=== PATIENT | male | born 1980 | race Caucasian/White ===

== ENCOUNTER 2016-08-03 02:10 | Emergency (ER) | payer OTHER ==
[~2016-08-03 02:10] MED LIST: Oxycodone/Acetaminophen PO; SERT20OR PO; TRAZ-115 PO
[2016-08-03 02:17] VITALS: BP 153/91; PULSE 78; RESP 20; O2SAT 99
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
[2016-08-03] MEDS ORDERED: IBUP-1827 PO (03:32)
[2016-08-03 03:46] VITALS: BP 159/100; PULSE 80; RESP 18; O2SAT 97
--- NOTE | 2016-08-03 08:59 | DRSVH ---
PROCEDURE: X-RAY PELVIS W/LAT HIP (RT) ([id number]) INDICATIONS: fall TECHNIQUE: AP pelvis with lateral view(s) of the right hip(s). COMPARISON: None. FINDINGS: Bones: No fractures or dislocations. Pelvic ring appears intact. No suspicious bony lesions. Soft tissues: The visualized bowel gas pattern is normal. No suspicious soft tissue calcifications. IMPRESSION: No displaced fracture seen. If there is continued pain, followup exam or additional kathy ging such as MRI or CT could be performed for further assessment. Dictated by: Cesar Rico RR Interpreted: Doug Joy MD on 08/03/2016 at 8:58 Transcribed by: JONATHON on 08/03/2016 at 8:58 Approved by: Doug Joy M.D. on 08/03/2016 at 15:39
--- NOTE | 2016-08-03 09:17 | DRSVH ---
PROCEDURE: X-RAY LEFT ELBOW COMPLETE, MINIMUM THREE VIEWS ([id number]) INDICATIONS: fall TECHNIQUE: 3 views of the elbow were acquired. COMPARISON: None. FINDINGS: Bones: No fractures or dislocations. No suspicious bony lesions. Soft tissues: No elbow joint effusion. No suspicious soft tissue calcifications. IMPRESSION: No displaced fracture seen. If there is continued pain, followup exam or additional kathy ging such as MRI or CT could be performed for further assessment. Dictated by: Cesar Rico [facility] Interpreted: Doug Joy MD on 08/03/2016 at 9:16 Transcribed by: JONATHON on 08/03/2016 at 9:16 Approved by: Doug Joy M.D. on 08/03/2016 at 15:39
--- NOTE | 2016-08-03 09:17 | DRSVH ---
PROCEDURE: X-RAY RIGHT ELBOW COMPLETE, MINIMUM THREE VIEWS ([id number]) INDICATIONS: fall TECHNIQUE: 3 views of the elbow were acquired. COMPARISON: None. FINDINGS: Bones: No fractures or dislocations. No suspicious bony lesions. Soft tissues: No elbow joint effusion. No suspicious soft tissue calcifications. IMPRESSION: No displaced fracture seen. If there is continued pain, followup exam or additional kathy ging such as MRI or CT could be performed for further assessment. Dictated by: Cesar Rico [facility] Interpreted: Doug Joy MD on 08/03/2016 at 9:16 Transcribed by: JONATHON on 08/03/2016 at 9:16 Approved by: Doug Joy M.D. on 08/03/2016 at 15:40
--- NOTE | 2016-08-03 10:51 | DRSVH ---
PROCEDURE: X-RAY LEFT ANKLE, MINIMUM THREE VIEWS ([id number]) INDICATIONS: fall TECHNIQUE: 3 views of the ankle were acquired. COMPARISON: None. FINDINGS: Bones: No fractures or dislocations. Ankle mortise is normally aligned. No suspicious bony lesions . Soft tissues: No tibiotalar joint effusion. Achilles tendon appears normal. IMPRESSION: No displaced fracture seen. If there is continued pain, followup exam or additional kathy ging such as MRI or CT could be performed for further assessment. Dictated by: Cesar Rico RR Interpreted: Doug Joy MD on 08/03/2016 at 10:50 Transcribed by: JONATHON on 08/03/2016 at 10:50 Approved by: Doug Joy M.D. on 08/03/2016 at 15:40
== END 2016-08-03 03:47 | disposition home or self-care (01) ==
LOC: SED 02:10
DX: S50.01XA Contusion of right elbow, initial encounter (principal); S50.02XA Contusion of left elbow, initial encounter; S76.011A Strain of muscle, fascia and tendon of right hip, initial encounter; S99.812A Other specified injuries of left ankle, initial encounter; W01.0XXA Fall on same level from slipping, tripping and stumbling without subsequent striking against object, initial encounter; Y92.232 Corridor of hospital as the place of occurrence of the external cause; Y93.F9 Activity, other caregiving; Y99.0 Civilian activity done for income or pay